=== PATIENT | female | born 1935 | race Caucasian/White ===

== ENCOUNTER 2021-08-28 10:13 | Inpatient (IN) | payer OTHER ==
[~2021-08-28] VITALS: Ht 152.4 cm; Wt 40.9 kg
[2021-08-28] VITALS (34 sets, daily range): BP systolic 61–177; BP diastolic 21–115
--- NOTE | 2021-08-28 10:23 | NUR ---
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 CAREGIVER CALLED FOR SHORTNESS OF BREATH. RA STATED HER OXYGEN SATURATION WAS 70-80 AND AFTER BEING PLACED ON 4L NC SHE WAS SATURATING 90-92%, BREATHING IS LABORED. PT IS A&OX2.
--- NOTE | 2021-08-28 10:27 | NUR ---
MARGARITA ESTABLISHED R IVAN 20G.
--- NOTE | 2021-08-28 10:37 | NUR ---
RT AT BEDSIDE
--- NOTE | 2021-08-28 10:51 | NUR ---
LAB AT BEDSIDE
--- NOTE | 2021-08-28 10:54 | NUR ---
COVID TEST COLLECTED AND SENT
[2021-08-28 12:00] LABS: BASOPHILS % (AUTO) 0.2 % (0.0-2.0); EOSINOPHILS % (AUTO) 0.6 % (0.0-6.0); HEMATOCRIT 25 % (33-45); HEMOGLOBIN 8.3 g/dL (11.5-14.8); LYMPHOCYTES # (AUTO) 0.6 K/uL (0.8-4.8); MEAN CORPUSCULAR HGB CONC 34 g/dl (31.0-36.0); MEAN CORPUSCULAR VOLUME 90 fL (82-100); MONOCYTES # (AUTO) 0.3 K/uL (0.1-1.30); MONOCYTES % (AUTO) 6.3 % (2.0-12.0); NEUTROPHILS # (AUTO) 3.2 K/uL (1.8-8.9); NEUTROPHILS % (AUTO) 77.9 % (43.0-81.0); PLATELET COUNT (AUTO) 144 K/uL (150-450); RED BLOOD CELL COUNT(AUTO) 2.74 MIL/uL (4.0-5.2); WHITE BLOOD COUNT (AUTO) 4.1 K/uL (4.3-11.0)
[2021-08-28] MEDS ORDERED: POTA10TA10 PO (12:18)
[2021-08-28] MEDS ORDERED: PANT40TA2 PO (12:18)
[2021-08-28] MEDS ORDERED: [UNRECOGNIZED DRUG - CODE] SQ (12:18)
[2021-08-28] MEDS ORDERED: DABI75CA3 PO (12:18)
[2021-08-28] MEDS ORDERED: MAGN400T26 PO (12:18)
[2021-08-28] MEDS ORDERED: EPOE200012 SQ (12:18)
[2021-08-28] MEDS ORDERED: LENA5CAP PO (12:18)
[2021-08-28] MEDS ORDERED: DIGO-30 PO (12:24)
[2021-08-28 12:28] LABS: CALCIUM, SERUM 9.6 mg/dL (8.5-10.1); CARBON DIOXIDE 29 mmol/L (21-32); CHLORIDE 98 mmol/L (98-107); CREATININE 1.5 mg/dL (0.6-1.3); GLUCOSE 149 mg/dL (74-106); POTASSIUM 5.2 mmol/L (3.5-5.1); SODIUM SERUM 133 mmol/L (136-145); UREA NITROGEN, BLOOD 60 mg/dL (7-18)
[2021-08-28] MEDS ORDERED: DEXAMETHASONE SOD PHOSPHATE 6 MG in IV D5W 50 ML IV ONE (12:30)
--- NOTE | 2021-08-28 12:45 | NUR ---
RT NOTE: POST ABG PT. PLACED ON NIGH FLOW NASAL CANNULA 40L/MIN FIO2 100% PER ER MD ORDER. RN AWARE AND CONTINUE TO MONITOR PT. ST. AWAKE AND RESPONSIVE,
[2021-08-28] MEDS ORDERED: DEXAMETHASONE SOD PHOSPHATE 10 MG/ML VIAL ONE (12:51)
--- NOTE | 2021-08-28 12:52 | NUR ---
CALLED [facility] [phone] LATEST VS 142/99 OR 101 SPO2 91% RR 28 DR. DUMONT WILL CALL US BACK.
[2021-08-28 12:55] LABS: BAND % (MANUAL) 12 % (0.0-5.0); LYMPHOCYTES % (MANUAL) 18 % (16-48); METAMYELOCYTES % 1 % (0-0); MONOCYTES % (MANUAL) 9 % (0-11.0); NEUTROPHILS % (MANUAL) 60 (42-76)
--- NOTE | 2021-08-28 12:58 | NUR ---
MARBIN ARGUETA SPEAKING WITH DR. LINTON.
[2021-08-28] MEDS ORDERED: DEXAMETHASONE SOD PHOSPHATE 10 MG/ML VIAL IV ONE (13:00)
[2021-08-28] MEDS ORDERED: IV NS 0.9% 1,000 ML BAG IV ONE (13:00)
[2021-08-28] MEDS ORDERED: PIPERACILLIN /TAZOBACTAM 3.375 G in IV D5W 50 ML IV ONE (13:00)
[2021-08-28] MEDS ORDERED: GABA-532 PO (13:07)
--- NOTE | 2021-08-28 13:11 | NUR ---
PICC LINE NURSE AT BEDSIDE
[2021-08-28 13:34] LABS: BILIRUBIN,URINE MODERATE (NEGATIVE); COLOR,URINE BROWN (YELLOW); LEUKOCYTE ESTERASE ,URINE SMALL (NEGATIVE); NITRITE, URINE POSITIVE (NEGATIVE); PROTEIN,URINE 30 mg/dl (NEGATIVE); UGLUCOSE NEGATIVE (NEGATIVE); UROBILINOGEN,URINE 0.2 EU/dL (0.2)
[2021-08-28 13:49] LABS: ALBUMIN 2.6 g/dL (3.4-5.0); BILIRUBIN,DIRECT 0.5 mg/dL (0.0-0.2); BILIRUBIN,TOTAL 1.1 mg/dL (0.2-1.0); TOTAL PROTEIN, SERUM 5.4 g/dL (6.4-8.2)
--- NOTE | 2021-08-28 13:58 | NUR ---
PICC LINE CONFIRMED WITH X RAY
--- NOTE | 2021-08-28 13:58 | NUR ---
X RAY AT BEDSIDE
[2021-08-28 14:12] LABS: THYROID STIMULATING HORMONE 5.441 uIU/mL (0.358-3.74)
[2021-08-28 14:26] LABS: BACTERIA,URINE Moderate /HPF (None Seen); WBC,URINE 81-100 /HPF (0-3)
[2021-08-28 14:27] LABS: CALCIUM OXALATE CRYSTALS,UR Few /HPF (None Seen); SQUAMOUS EPITHELIAL CELL,UR Moderate /HPF (None Seen)
[2021-08-28] MEDS ORDERED: MAGNESIUM HYDROXIDE 30 ML UDC PO PRN (14:30)
[2021-08-28] MEDS ORDERED: ZOLPIDEM TARTRATE 5 MG TABLET PO PRN (14:30)
[2021-08-28] MEDS ORDERED: Z GUARD REMEDY 4 OZ OINT TP PRN (14:30)
[2021-08-28] MEDS ORDERED: APIXABAN 2.5 MG TABLET PO SCH (14:30)
[2021-08-28] MEDS ORDERED: MAG HYDROX/AL HYDROX/SIMETH 30 ML UDC PO PRN (14:30)
[2021-08-28] MEDS ORDERED: ACETAMINOPHEN 325 MG TABLET PO PRN (14:30)
[2021-08-28] MEDS ORDERED: ALBUTEROL SULFATE 8 GM HFA.AER.AD IH PRN (14:30)
[2021-08-28] MEDS ORDERED: IV NS 0.9% 1,000 ML IV PRN ×2 (14:30→23:30)
[2021-08-28] MEDS ORDERED: HYDROCODONE/APAP 5/325MG TABLET PO PRN (14:30)
[2021-08-28] MEDS ORDERED: ONDANSETRON HCL/PF 4 MG/2 ML VIAL IVP PRN (14:30)
[2021-08-28] MEDS ORDERED: ONDANSETRON HCL/PF 4 MG/2 ML VIAL ONE (14:51)
[2021-08-28] MEDS ORDERED: VANCOMYCIN 500 MG in IV D5W 100 ML IV SCH (15:00)
[2021-08-28] MEDS ORDERED: GABAPENTIN 100 MG CAPSULE PO PRN (15:00)
--- NOTE | 2021-08-28 15:00 | NUR ---
RT NOTE: PT. PLACED ON (HIGH FLOW + NRB MASK) PER ER MD ORDER. CONTINUE TO MONITOR PT.
--- NOTE | 2021-08-28 15:43 | NUR ---
REPORT GIVEN TO GEORGINA FOR IKER
[2021-08-28] MEDS ORDERED: PIPERACILLIN /TAZOBACTAM 2.25 G in IV D5W 50 ML IV SCH (16:00)
--- NOTE | 2021-08-28 16:04 | NUR ---
PT TRANSPORTED TO ICU WITH ACLS PROTOCOLS IN PLACED ACCOMPANIED BY RT.
[2021-08-28] MEDS: DABIGATRAN ETEXILATE MESYLATE 75 MG CAPSULE PO SCH (17:00)
[2021-08-28] MEDS: IV NS 0.9% 250 ML IV PRN (17:11)
[2021-08-28] MEDS ORDERED: NOREPINEPHRINE 8 MG in IV NS 0.9% 242 ML IV PRN (18:00)
[2021-08-28] MEDS ORDERED: IV NS 0.9% 1,000 ML IV ONE (19:00)
[2021-08-28] MEDS: NOREPINEPHRINE 32 MG in IV NS 0.9% 218 ML IV PRN (19:45)
[2021-08-28 20:08] LABS: ABG BASE EXCESS 2.2 mmol/L; ABG PCO2 35.8 mmHg (35.0-45.0); ABG PH 7.476 (7.350-7.450); ABG PO2 51.1 mmHg (75.0-100.0); COHb 0.3 % (0.5-1.5); MetHb 0.3 % (0.0-1.5); O2Hb 85.5 % (94.0-97.0); SITE, ABG Right Radial; VENT MODE, BG N/B
[2021-08-28 20:50] LABS: ABG BASE EXCESS -1.5 mmol/L; ABG OXYGEN SATURATION 92.7 % (92.0-98.5); ABG PCO2 40.3 mmHg (35.0-45.0); ABG PH 7.382 (7.350-7.450); ABG PO2 72.8 mmHg (75.0-100.0); AaDO2 599.9 mmHg; COHb 0.3 % (0.5-1.5); MetHb 0.4 % (0.0-1.5); O2Hb 92.1 % (94.0-97.0); SITE, ABG Right Radial; VENT MODE, BG HFNC 40L 100% +NRB
--- NOTE | 2021-08-28 21:00 | NUR ---
COUNTER CASER S/W PTS FRIENDS ANA LAURA DING AND HEBERT PER THEM PT IS PRIMARY DECISION MAKER FOR HERSELF; THE FRIENDS CAN HAVE INPUT BUT PT MAKES HER OWN DECISIONS. PT HAS NO FAMILY.
[2021-08-28] MEDS: PIPERACILLIN /TAZOBACTAM 2.25 G in IV D5W 50 ML IV SCH (21:30)
[2021-08-28 23:06] LABS: BASOPHILS % (AUTO) 0.3 % (0.0-2.0); EOSINOPHILS % (AUTO) 0.4 % (0.0-6.0); HEMATOCRIT 22 % (33-45); HEMOGLOBIN 7.3 g/dL (11.5-14.8); LYMPHOCYTES # (AUTO) 0.4 K/uL (0.8-4.8); LYMPHOCYTES % (AUTO) 17.7 % (20.0-44.0); MEAN CORPUSCULAR HGB CONC 33 g/dl (31.0-36.0); MEAN CORPUSCULAR VOLUME 90 fL (82-100); MONOCYTES # (AUTO) 0.1 K/uL (0.1-1.30); MONOCYTES % (AUTO) 2.8 % (2.0-12.0); NEUTROPHILS # (AUTO) 1.6 K/uL (1.8-8.9); NEUTROPHILS % (AUTO) 78.8 % (43.0-81.0); PLATELET COUNT (AUTO) 105 K/uL (150-450); RED BLOOD CELL COUNT(AUTO) 2.48 MIL/uL (4.0-5.2)
[2021-08-29] VITALS (96 sets, daily range): BP systolic 48–118; BP diastolic 18–76
[2021-08-29] MEDS ORDERED: PHENYLEPHRINE 10 MG/ML VIAL ONE (00:51)
[2021-08-29 01:12] LABS: LYMPHOCYTES % (MANUAL) 20 % (16-48); MONOCYTES % (MANUAL) 5 % (0-11.0); NEUTROPHILS % (MANUAL) 73 (42-76); REACTIVE LYMPHOCYTES 2 % (0-0)
[2021-08-29] MEDS: PHENYLEPHRINE 100 MG in IV NS 0.9% 240 ML IV PRN ×2 (02:16→14:32)
[2021-08-29] MEDS: PROPOFOL 100 ML IV PRN ×2 (02:29→20:20)
--- NOTE | 2021-08-29 02:30 | NUR ---
MEDICAL CHARGE ENTRY SPECIALIST PT WAS NT SUCTIONED BY RT WITH 900 ML OUPTUT OF BROWNISH LIQUID. NOTIFIED TUBE SIZER OPERATOR WITH ORDERS FOR ONE UNIT FFP AND TWO UNITS PRBC. PT WAS INTUBATED BY DR SALDAÑA 7.5 @ 24 W/VENT SETTINGS 24 400 100%. TUBE SIZER OPERATOR AWARE THAT PT O2 SENSOR NOT CAPTURING CORRECTLY.
--- NOTE | 2021-08-29 03:00 | NUR ---
OBSTETRICS AND GYNECOLOGY PROFESSOR SOFT WRIST RESTRAINTS REMOVED PT IS LETHARGIC AT THIS TIME.
[2021-08-29] MEDS ORDERED: VASOPRESSIN INJ 20 UNIT/ML VIAL ONE (03:55)
[2021-08-29] MEDS: VASOPRESSIN INJ 40 UNIT in IV NS 0.9% 38 ML IV PRN ×2 (04:03→22:47)
[2021-08-29 04:39] LABS: ABG BASE EXCESS -12.8 mmol/L; ABG OXYGEN SATURATION 98.4 % (92.0-98.5); ABG PCO2 45.5 mmHg (35.0-45.0); ABG PH 7.145 (7.350-7.450); ABG PO2 194.3 mmHg (75.0-100.0); AaDO2 473.2 mmHg; COHb 0.3 % (0.5-1.5); MetHb 0.1 % (0.0-1.5); PEEP,BG 0 cm H2O; SITE, ABG Right Radial; VENT MODE, BG AC 24 400 100% +0; VT, ABG 400 mL
[2021-08-29] MEDS: PIPERACILLIN /TAZOBACTAM 2.25 G in IV D5W 50 ML IV SCH ×3 (04:40→21:15)
[2021-08-29] MEDS ORDERED: SODIUM BICARBONATE SYR 50 MEQ/50 ML DISP.SYRIN ONE (04:55)
[2021-08-29] MEDS: Sodium Bicarbonate 100 MEQ in IV D5W 1,000 ML IV PRN ×2 (05:10→23:02)
[2021-08-29] MEDS ORDERED: SODIUM BICARBONATE SYR 50 MEQ/50 ML DISP.SYRIN IV ONE (05:30)
--- NOTE | 2021-08-29 06:00 | NUR ---
REFRIGERATION PLANT CORK INSULATOR ONE UNIT FFP CURRENTLY RUNNING; PT MAXED ON NEOSYNEPHRINE, LEVOPHED AND VASOPRESSIN. UNABLE TO READ BP AND O2 SENSOR; SPRING SALVAGE WORKER AWARE. PT HAS NO FAMILY TO INFORM OF CHANGE IN CONDITION.
[2021-08-29] MEDS ORDERED: PANTOPRAZOLE 40 MG TABLET.DR PO SCH (07:30)
--- NOTE | 2021-08-29 07:30 | NUR ---
RN NOTES PT FOUND SEMI FOWLERS DISPLAYING MODERATE SIGNS OF DISTRESS, PT IS INTUBATED, STIRRING, LOW BP PROHIBITS SEDATION. RESPIRATORY DRIVE, WHILE INTUBATED, IS MILDLY LABORED. PT ATTEMPTING TO REACH ETT, BILATERAL SOFT RESTAINTS APPLIED, PULSES PALPATED AND CAP REFILL < 3 SECONDS BILATERALLY. BP COMES AND GOES. R UA PICC AND L AC 18G ARE PATIENT AND INTACT. HAWK CATH BELOW PATIENT DRAINING BY GRAVITY. VS UNSTABLE, RN WILL MONITOR AND TREAT THROUGHOUT SHIFT. SAFETY MEASURES IN PLACE, BED LOCKED AND IN LOWEST POSITION, SIDE RAILS UPX2, CALL LIGHT WITHIN REACH, BED ALARM ARMED.
--- NOTE | 2021-08-29 08:18 | NUR ---
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 RECOMMENDATIONS MADE FOR SKIN PROTECTION. DISCUSSED WITH NURSING STAFF. PT IS ON KYLE ISOFLEX LOW AIRLOSS BED. DR GABBY COLVIN NOTIFIED OF SURGICAL CONSULT REQUEST. MD IN AGREEMENT WITH PLAN OF CARE.
[2021-08-29] MEDS: NOREPINEPHRINE 32 MG in IV NS 0.9% 218 ML IV PRN ×2 (08:26→20:22)
[2021-08-29 08:40] LABS: BASOPHILS % (AUTO) 0.1 % (0.0-2.0); EOSINOPHILS % (AUTO) 0.4 % (0.0-6.0); LYMPHOCYTES # (AUTO) 0.8 K/uL (0.8-4.8); LYMPHOCYTES % (AUTO) 22.8 % (20.0-44.0); MEAN CORPUSCULAR HGB CONC 32 g/dl (31.0-36.0); MEAN CORPUSCULAR VOLUME 95 fL (82-100); MONOCYTES % (AUTO) 0.2 % (2.0-12.0); NEUTROPHILS # (AUTO) 2.6 K/uL (1.8-8.9); NEUTROPHILS % (AUTO) 76.5 % (43.0-81.0); PLATELET COUNT (AUTO) 60 K/uL (150-450); WHITE BLOOD COUNT (AUTO) 3.4 K/uL (4.3-11.0)
--- NOTE | 2021-08-29 08:54 | NUR ---
vent changes below per dr. rhodes: no peep fio2 50% Addendum: 08/29/21 at 0855 by GIOVANI GUTIERREZ RT Amended: Links added.
[2021-08-29] MEDS ORDERED: DIGOXIN 0.125 MG TABLET PO SCH (09:00)
[2021-08-29] MEDS: DABIGATRAN ETEXILATE MESYLATE 75 MG CAPSULE PO SCH (09:00)
[2021-08-29] MEDS ORDERED: DEXAMETHASONE SOD PHOSPHATE 10 MG/ML VIAL IV SCH (09:00)
--- NOTE | 2021-08-29 09:00 | NUR ---
MD COMMUNICATION RN SPOKE TO MD ABOUT PRADAXA AND DIGOXIN. MD INSTRUCTED TO HOLD BOTH. RN ACKNOWLEDGED AND WILL HOLD.
[2021-08-29 09:02] LABS: RED BLOOD CELL COUNT(AUTO) 1.99 MIL/uL (4.0-5.2)
[2021-08-29] MEDS ORDERED: PROPOFOL 200 MG/20 ML VIAL IV ONE (09:02)
[2021-08-29 09:15] LABS: HEMATOCRIT 19 % (33-45)
[2021-08-29 09:37] LABS: CALCIUM, SERUM 8.7 mg/dL (8.5-10.1); CARBON DIOXIDE 15 mmol/L (21-32); CHLORIDE 102 mmol/L (98-107); CREATININE 2.4 mg/dL (0.6-1.3); GLUCOSE 78 mg/dL (74-106); MAGNESIUM 3.3 mg/dL (1.8-2.4); POTASSIUM 5.4 mmol/L (3.5-5.1); SODIUM SERUM 141 mmol/L (136-145); UREA NITROGEN, BLOOD 64 mg/dL (7-18)
[2021-08-29] MEDS: PANTOPRAZOLE 40 MG VIAL IV SCH ×2 (09:52→21:15)
--- NOTE | 2021-08-29 10:00 | NUR ---
NURSES NOTES SOLU-CORTEF NOT GIVEN, JUST GAVE 100MG IN 2ML IV AT [address] HUBBARD. NEW ORDER UNDER DR LONG.
[2021-08-29 10:01] LABS: PHOSPHORUS 8.3 mg/dL (2.5-4.9)
[2021-08-29 10:07] LABS: T3, FREE 1.4 pg/mL (2.0-4.4)
[2021-08-29] MEDS: HYDROCORTISONE SOD SUCCINATE 100 MG/2 ML VIAL IV SCH ×4 (10:25→18:03)
--- NOTE | 2021-08-29 10:34 | NUR ---
[address] rhodes Addendum: 08/29/21 at 1034 by GIOVANI GUTIERREZ RT Amended: Links added.
[2021-08-29 11:05] LABS: CHOLESTEROL 58 mg/dL (<200); HDL CHOLESTEROL 21 mg/dL (40-60); LDL 30 mg/dL (0-99); THYROID STIMULATING HORMONE 2.593 uIU/mL (0.358-3.74); TRIGLYCERIDES 73 mg/dL (30-150)
--- NOTE | 2021-08-29 12:00 | NUR ---
RN NOTE PT TYMPANIC TEMP IS 94.7 F. RN APPLIED HEATING BLANKET
[2021-08-29] MEDS: FLUDROCORTISONE 0.1 MG TABLET PO SCH ×3 (12:28→23:39)
--- NOTE | 2021-08-29 14:00 | NUR ---
MD COMMUNICATION RN INFORMED MD OF OG TUBE RESIDUAL, 550 CC OF DARK BROWN THIN FLUID. MD GAVE ORDER, INTERMITTENT LOW SUCTIONING. RN ACKNOWLEDGED AND WILL CARRY OUT ORDER.
[2021-08-29 14:42] LABS: BASOPHILS % (MANUAL) 1 % (0.0-2.0); LYMPHOCYTES % (MANUAL) 45 % (16-48); METAMYELOCYTES % 3 % (0-0); MONOCYTES % (MANUAL) 6 % (0-11.0); MYELOCYTES % 15 % (0-0); REACTIVE LYMPHOCYTES 1 % (0-0)
[2021-08-29 14:43] LABS: BAND % (MANUAL) 14 % (0.0-5.0); PROMYELOCYTES % 0 % (0-0)
[2021-08-29 14:46] LABS: NEUTROPHILS % (MANUAL) 15 (42-76)
[2021-08-29] MEDS ORDERED: HYDROGEL DRESSING 90 GM TUBE TP PRN (15:00)
[2021-08-29] MEDS ORDERED: EPOETIN ALFA-EPBX 20,000 UNIT/ML VIAL SQ SCH (15:41)
--- NOTE | 2021-08-29 19:15 | NUR ---
RN OPENING NOTES RECEIVED PATIENT IN BED, INTUBATED, ON MECHANICAL VENT WITH SETTING TRACH- 7.5/24, AC-24, TV 450, FIO2- 50%, PEEP 0. PATIENT IS UNSTABLE, NOTED WITH LOW SBP'S ON 60'S, MAX DOSAGE ON LEVOPHED, NEOSYNEPHRINE, AND VASOPRESSOR AND ALSO RUNNING WITH SODIUM BICARB 100 MEQ ON D5W 1L @70 ML/HR. WITH ONGOING BLOOD TRANSFUSION 1 UNIT PRBC, NO S/S OF ADVERSE REACTION NOTED. NOTED WITH OGT, IN PLACED, INTACT VERIFIED PLACEMENT BY AUSCULTATION. ON NGT LOW INTERMITTENT SUCTION. ON HAWK CATHETER WITH VERY LOW URINE OUTPUT. UNABLE TO REPOSITION, BECAUSE PATIENT IS UNSTABLE, SBP ON 60'S. ALL SAFETY PRECAUTION PROVIDED, BED IN LOWEST POSITION, LOCKED AND CONTINUE TO MONITOR VITAL SIGNS.
--- NOTE | 2021-08-29 19:23 | NUR ---
RN NOTES PT FOUND SEMI FOWLERS DISPLAYING NO S/S OF DISTRESS, FLACC = 0 AND BILATERAL RISE AND FALL OF THE CHEST OBSERVED. PT IS MORE LETHARGIC COMPARED TO AM, EYES ARE SHUT, NO ATTEMPTS TO SELF EXTUBATE. SOFT WRISTS ARE APPLIED BILATERALLY FOR SAFETY, PULSES PALPATED AND CAP REFILL < 3 SECONDS BILATERALLY. PERFUSION REMAINS POOR AND UNABLE TO GET ADEQUATE SPO2. BLOOD TRANSFUSION FINISHING UP. R UA PICC AND L AC 18G ARE PATIENT AND INTACT. HAWK CATH BELOW PATIENT DRAINING BY GRAVITY. SBAR AND REPORT GIVEN TO FLOOR HAND RN, ALL QUESTIONS ANSWERED. SAFETY MEASURES IN PLACE, BED LOCKED AND IN LOWEST POSITION, SIDE RAILS UPX2, CALL LIGHT WITHIN REACH, BED ALARM ARMED. PT ENDORSED FOR IKER.
--- NOTE | 2021-08-29 19:30 | NUR ---
RN NOTES PATIENT IS TACHYPNEIC, RR 35-38, NOTIFIED BEAM DYER OPERATOR WENDY SIMS WITH NEW ORDER FENTANYL DRIP NOTED AND CARRIED OUT.
--- NOTE | 2021-08-29 19:50 | NUR ---
RN NOTES PATIENT RECEIVED 1 UNIT PRBC, NO ADVERSE REACTION NOTED. CONTINUE TO MONITOR
[2021-08-29] MEDS ORDERED: FENTANYL CITRAT IV 2,500 MCG in IV NS 0.9% 200 ML IV PRN (20:30)
--- NOTE | 2021-08-29 20:45 | NUR ---
RN NOTES CALLED CORRINE BAUMOA, UPDATE HER ABOUT PATIENT CONDITION AND VITAL SIGNS, DPOA STILL WANT PATIENT TO REMAIN FULL CODE.
[2021-08-29 21:05] LABS: LYMPHOCYTES # (AUTO) 0.7 K/uL (0.8-4.8)
--- NOTE | 2021-08-29 21:11 | NUR ---
RN NOTES NOTIFIED TECHNICAL EDUCATION TEACHER WENDY SIMS THAT THE PATIENT IS JUNCTIONAL RYTHM AND AFIB ON MONITOR AND MAX ON 3 PRESSORS, BLOOD PRESSURE IS 66/36.
[2021-08-29 21:24] LABS: BASOPHILS % (AUTO) 0.2 % (0.0-2.0); EOSINOPHILS % (AUTO) 2.2 % (0.0-6.0); HEMATOCRIT 30 % (33-45); HEMOGLOBIN 9.5 g/dL (11.5-14.8); LYMPHOCYTES % (AUTO) 17.9 % (20.0-44.0); MEAN CORPUSCULAR HGB CONC 32 g/dl (31.0-36.0); MEAN CORPUSCULAR VOLUME 93 fL (82-100); MONOCYTES % (AUTO) 0.1 % (2.0-12.0); NEUTROPHILS # (AUTO) 3.1 K/uL (1.8-8.9); NEUTROPHILS % (AUTO) 79.6 % (43.0-81.0); RED BLOOD CELL COUNT(AUTO) 3.26 MIL/uL (4.0-5.2); WHITE BLOOD COUNT (AUTO) 3.9 K/uL (4.3-11.0)
[2021-08-29 21:26] LABS: PLATELET COUNT (AUTO) 44 K/uL (150-450)
[2021-08-29] MEDS: IV NS 0.9% 250 ML IV PRN (21:35)
[2021-08-29 21:46] LABS: EOSINOPHILS % (MANUAL) 1 % (0-4); LYMPHOCYTES % (MANUAL) 36 % (16-48); METAMYELOCYTES % 14 % (0-0); MONOCYTES % (MANUAL) 6 % (0-11.0); MYELOCYTES % 13 % (0-0); REACTIVE LYMPHOCYTES 2 % (0-0)
[2021-08-29 21:48] LABS: BAND % (MANUAL) 17 % (0.0-5.0); PROMYELOCYTES % 0 % (0-0)
[2021-08-29 22:09] LABS: NEUTROPHILS % (MANUAL) 11 (42-76)
--- NOTE | 2021-08-29 22:20 | NUR ---
RN NOTES NOTIFIED MANUFACTURING PROCESS ENGINEER WENDY SIMS, REGARDING PATIENT PLATELETS- 44, NO NEW ORDER AT THIS TIME.
[2021-08-29] MEDS ORDERED: HYDROCORTISONE SOD SUCCINATE 100 MG/2 ML VIAL IV SCH (23:00)
[2021-08-30] VITALS: BP_SYST 45; BP_SYST 50; BP_DIAS 25; BP_DIAS 5
[2021-08-30 01:00] VITALS: BP 32/1
--- NOTE | 2021-08-30 01:35 | NUR ---
RN NOTES TARGET AIRCRAFT TECHNICIAN SHOWING JUNCTIONAL BRADYCARDIA WITH ASYSTOLE, ACTIVATED CODE BLUE. TUFTING MACHINE FIXER MD AT BEDSIDE. INTIATED ACLS PROTOCOL. SEE CODE BLUE SHEET.
[2021-08-30] MEDS ORDERED: DEXTROSE 50%-WATER 50 ML DISP.SYRIN IV ONE (01:52)
[2021-08-30] MEDS ORDERED: EPINEPHRINE (1:10,000) SYRINGE 1 MG/10 ML DISP.SYRIN IVP ONE (01:52)
[2021-08-30] MEDS ORDERED: SODIUM BICARBONATE SYR 50 MEQ/50 ML DISP.SYRIN IV ONE (01:52)
--- NOTE | 2021-08-30 02:02 | NUR ---
RN NOTES CALLED [facility], SPOKE TO WILLIS TINOCO TO RELEASE BODY TO MORTUARY. CASE # [id number]
--- NOTE | 2021-08-30 02:04 | NUR ---
RN NOTES NOTIFIED REJI BAUM, THAT THE PATIENT . PER ANA LAURA DING, PATIENT HAS MORTUARY ARRANGEMENT, [facility]. REJI BAUM SHE WILL BE THE ONE TO CALL THE MORTUARY. ASKED ANA LAURA DING IF SHE WANT TO COME AND SEE THE PATIENT, SHE SAID SHE CAN'T COME AND SHE WILL CONTACT THE MORTUARY. ANA LAURA DING APPRECIATED THE CALL.
--- NOTE | 2021-08-30 03:35 | NUR ---
RN NOTES BODY RELEASED TO [facility], PATIENT HAS NO BELONGING.
[2021-08-30 09:27] LABS: ABG BASE EXCESS -15.4 mmol/L; ABG OXYGEN SATURATION 99.5 % (92.0-98.5); ABG PCO2 34.3 mmHg (35.0-45.0); ABG PO2 332.7 mmHg (75.0-100.0); MetHb 0.4 % (0.0-1.5); O2Hb 99.1 % (94.0-97.0); PEEP,BG 5 cm H2O; SITE, ABG Right Femoral; VT, ABG 400 mL
[2021-09-01] MEDS ORDERED: EPOETIN ALFA-EPBX 20,000 UNIT/ML VIAL SQ SCH (15:40)
== END 2021-08-30 01:53 | DRG 871 ==
LOC: ER 10:17 → ICU 13:14
PROC: 02HV33Z Insertion of Infusion Device into Superior Vena Cava, Percutaneous Approach (ICD-10-PCS; 2021-08-28)
PROC: B548ZZA Ultrasonography of Superior Vena Cava, Guidance (ICD-10-PCS; 2021-08-28)
PROC: 0BH18EZ Insertion of Endotracheal Airway into Trachea, Via Natural or Artificial Opening Endoscopic (ICD-10-PCS; principal; 2021-08-29)
PROC: 5A1935Z Respiratory Ventilation, Less than 24 Consecutive Hours (ICD-10-PCS; 2021-08-29)
PROC: 30233K1 Transfusion of Nonautologous Frozen Plasma into Peripheral Vein, Percutaneous Approach (ICD-10-PCS; 2021-08-29)
PROC: 30233N1 Transfusion of Nonautologous Red Blood Cells into Peripheral Vein, Percutaneous Approach (ICD-10-PCS; 2021-08-29)
PROC: 04HL33Z Insertion of Infusion Device into Left Femoral Artery, Percutaneous Approach (ICD-10-PCS; 2021-08-29)
DX: A41.9 Sepsis, unspecified organism (principal); L89.153 Pressure ulcer of sacral region, stage 3; J96.01 Acute respiratory failure with hypoxia; N17.0 Acute kidney failure with tubular necrosis; G92.8 Other toxic encephalopathy; I21.4 Non-ST elevation (NSTEMI) myocardial infarction; J15.9 Unspecified bacterial pneumonia; R65.21 Severe sepsis with septic shock; N39.0 Urinary tract infection, site not specified; E44.0 Moderate protein-calorie malnutrition; D68.9 Coagulation defect, unspecified; E87.2 Acidosis; D61.818 Other pancytopenia; Z20.822 Contact with and (suspected) exposure to COVID-19; Z86.73 Personal history of transient ischemic attack (TIA), and cerebral infarction without residual deficits; Z51.5 Encounter for palliative care; K21.9 Gastro-esophageal reflux disease without esophagitis; Z79.899 Other long term (current) drug therapy; Z85.118 Personal history of other malignant neoplasm of bronchus and lung; I12.9 Hypertensive chronic kidney disease with stage 1 through stage 4 chronic kidney disease, or unspecified chronic kidney disease; N18.9 Chronic kidney disease, unspecified; E88.09 Other disorders of plasma-protein metabolism, not elsewhere classified; R74.01 Elevation of levels of liver transaminase levels; E03.9 Hypothyroidism, unspecified; F10.10 Alcohol abuse, uncomplicated; Y90.9 Presence of alcohol in blood, level not specified; D69.6 Thrombocytopenia, unspecified; D46.9 Myelodysplastic syndrome, unspecified; E83.39 Other disorders of phosphorus metabolism; E87.5 Hyperkalemia
CPT/HCPCS: 31720; 36415; 36600; 71045-TC; 80048-TC; 80061-TC; 80076-TC; 80162-TC; 81001; 82533; 82803-TC; 83605-TC; 83735-TC; 83880; 84100-TC; 84439-TC; 84443-TC; 84480; 84481; 84484-TC; 85025-TC; 85378-TC; 85730-TC; 86850-TC; 87040-TC; 87081-TC; 87086-TC; 87186-TC; 92950-TC; 93307-TC; 94002-TC; 94003-TC; 94799-TC; 99082-TC; A6248; A6403; C9113; C9803; G0378; J0171; J0885; J1100; J1720; J2370; J2405; J2543; J2704; J3010; J3370; J3490; J7030; J7040; J7050; J7060; J7070; P9016; P9017; U0003